=== PATIENT | female | born 1955 | race Caucasian/White ===

== ENCOUNTER → 2024-05-23 12:49 | Outpatient (REF) | payer MEDICARE, SELFPAY | LOC: WDC 12:49 | PROVIDERS: ATTENDING PHYSICIAN Physician Assistant | DX: Z12.31 Encounter for screening mammogram for malignant neoplasm of breast (principal) | CPT/HCPCS: 77063; 77067 ==

== ENCOUNTER → 2024-05-23 14:47 | Outpatient (REF) | payer MEDICARE, SELFPAY | LOC: PAVMRI 14:47 | PROVIDERS: ATTENDING PHYSICIAN Physical Medicine & Rehabilitation; FAMILY PHYSICIAN Physician Assistant | DX: M54.16 Radiculopathy, lumbar region (principal) | CPT/HCPCS: 72148 ==

== ENCOUNTER → 2024-08-28 12:12 | Outpatient (REF) | payer MEDICARE, SELFPAY | LOC: PAVMRI 12:12 | PROVIDERS: ATTENDING PHYSICIAN Physical Medicine & Rehabilitation; FAMILY PHYSICIAN Internal Medicine | DX: S76.311A Strain of muscle, fascia and tendon of the posterior muscle group at thigh level, right thigh, initial encounter (principal) | CPT/HCPCS: 73721 ==

== ENCOUNTER 2024-11-22 19:22 | Observation (INO) | payer MEDICARE, SELFPAY ==
[2024-11-22] VITALS (9 sets, daily range): BP systolic 137–184; BP diastolic 83–111; BMI 23.6
[2024-11-22 14:47] LABS: Hematocrit 38.0 % (37.0-47.0); Hemoglobin 13.1 g/dL (12.0-16.0); Mean Corp Hgb Conc. 34.5 g/dL (33.0-37.0); Mean Corpuscular Volume 89.4 fL (81.0-99.0); Nucleated Red Blood Cells % 0 %; Platelet Count 198 10^3/uL (130-400); Red Cell Dist. Width 12.7 % (11.5-14.5)
[2024-11-22 15:02] LABS: ALT (SGPT) 22 U/L (0-35); AST (SGOT) 29 U/L (14-36); Albumin 4.6 g/dl (3.5-5.0); Alkaline Phosphatase 95 U/L (38-126); Blood Urea Nitrogen 23 mg/dl (7-17); Calcium 9.4 mg/dl (8.4-10.2); Carbon Dioxide 29 mmol/L (22-30); Chloride 107 mmol/L (98-107); Glucose 95 mg/dl (70-99); Potassium 3.9 mmol/L (3.5-5.1); Sodium 140 mmol/L (135-145); Total Protein 6.8 g/dl (6.3-8.2); eGFR > 60.00
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
--- NOTE | 2024-11-22 19:06 | HPS.HSE ---
Family Physician
-
Family Physician: Korey Sanchez MD
Chief Complaint
-
Amnesia
History of Present Illness
Patient is a 69 y/o female past medical history of chronic back pain who presents with an episode of amnesia. Patient reports this morning she played tennis outdoors for about two hours, and then went to the gym. She personally does not remember
anything that occurred while at the gym, and the next thing she recalls is arriving in the emergency department. Apparently while at the gym patient was not acting herself. Patient was unable to locate her daughter while in the gym. Symptoms
lasted for about an hour and half. She is complaining of a mild headache but state she has not had anything to eat today. Patient denies any prior similar episode.
Medical History
Past Medical History
Past Medical History: Reports Other
Additional Past Medical History:
Chronic Back Pain
Past Surgical History: Reports Other
Additional Past Surgical History:
Anterior and Posterior Lumbar Fusion
ACL Repair
Trigger Finger Release
Social History
Tobacco: Non-smoker
Alcohol: Occasional
Family History
Family History: Not pertinent
Allergies / Home Medications
Allergies reflects when Allergies were last updated in [employer].
Home Medications with original date entered in [employer]
Allergy/Medication List:
Allergies
Allergy/AdvReac Type Severity Reaction Status Date / Time
No Known Allergies Allergy Verified 11/13/20 14:40
Home Medications
Lactobac no.2-Bifidobac no.1-S. thermo 112.5 billion cell capsule (Visbiome) 1 cap PO DAILY 11/22/24
cyanocobalamin (vitamin B-12) 2,500 mcg sublingual tablet 2,500 mcg sublingual DAILY 11/22/24
ferrous sulfate 325 mg (65 mg iron) tablet 325 mg PO DAILY 11/22/24
naproxen sodium 220 mg tablet 220 mg PO HS 11/22/24
polyethylene glycol 400 0.25 % eye drops (Blink Tears) 1 drp ophthalmic (eye) DAILYPRN PRN dry eyes 11/22/24
Review of Systems
-
A 12 point ROS was completed and negative except as noted: Yes
Constitutional: Denies Fever or Chills
Respiratory: Denies Cough or Trouble Breathing
Cardiac: Denies Chest Pain or Palpitations
Physical Exam
Vital Signs
Vital Signs
Temp Pulse Resp BP Pulse Ox
98.2 F 69 18 154/103 98
11/22/24 14:17 11/22/24 17:30 11/22/24 17:30 11/22/24 17:00 11/22/24 17:00
Physical Exam
General: Well Developed, Well Nourished and No Apparent Distress
HEENT: NormoCephalic, Anicteric, Moist mucous membranes and Atraumatic
Respiratory: Clear and Non Labored Respirations; No Wheezes, Rales or Rhonchi
Cardiac: S1/S2 and Regular Rhythm; No Murmur
GI: Soft, Non Tender, Non Distended and Normal Bowel Sounds
Rectal: Deferred by Provider
Musculoskeletal: No Clubbing, No Cyanosis and No Edema
Skin: Warm and Dry; No Rash
Neuro: Awake, Alert, Oriented and Nonfocal/grossly intact
Psych: Calm
Laboratory Results
-
11/22/24 14:26
11/22/24 14:26
Laboratory Results
Total Bilirubin 0.8 mg/dl (0.2-1.3) 11/22/24 14:26
AST 29 U/L (14-36) 11/22/24 14:26
ALT 22 U/L (0-35) 11/22/24 14:26
Alkaline Phosphatase 95 U/L (38-126) 11/22/24 14:26
Data Reviewed
-
CT Scan: Report Reviewed by me
Lab Data: Labs Reviewed by me
Impression/Plan
-
Transient Global Amnesia
-Appreciate Neurology consult
-Check Brain MRI
DVT proph: SCDs
Code Status: Full Code
--- NOTE | 2024-11-22 23:24 | TRANSFER ---
Received pt to room 434-1 from the ED. Pt walked with no assistance from stretcher to bed. AAOx3. VSS. Oriented to room, call valle within reach.
[2024-11-23 07:13] VITALS: BP 136/81
--- NOTE | 2024-11-23 11:26 | W.DCSUMMARY ---
Discharge Summary
Discharge Data
Date of Admission: 11/22/24
Date of Discharge: 11/23/24
-
Pending Results: No
Hospital Course
Primary diagnosis:
Possible transient global amnesia
Hospital course:
69-year-old healthy female presented with amnestic episode.
Patient yesterday morning played tennis outdoors for 2 hours as well as piano with her daughter without any issues. She went to the gym with her daughter between 12:30 PM and 1:30 PM yesterday afternoon. While she was in the gym she phoned her
daughter and said something was more apparent she was feeling fuzzy. Did not recall her close her daughter's birthday and did not remember going into the gym with her. This lasted for 1 to 2 hours. Patient did not recall this episode.
No trauma. No prior history of neurological disease. No prior history of seizure. No prior history of stroke or TIA. No risk factors for stroke.
She was nonfocal neurologically. CT of the head was negative for any acute findings. She had an MRI of the brain as well which did not show any acute intracranial abnormalities.
Lab work was fine and as well as EKG. No new events on the monitor.
Clinical suspicion was for TGA. Was reviewed by neurology who thinks it is probably TGA and she was discharged home today.
Today patient without any symptoms. Denies any headache. No vision disturbances or speech impairment. No tingling numbness in the hands or legs. No limb weakness.
Afebrile, pulse 70, blood pressure 136/81. + S1 plus S2 heard sinus rhythm. Nonfocal neurologically. Lab work from admission within the normal limits.
Medically stable for discharge home today.
Consultants on board:
Neurology-Conner Feliz
Portions of this chart may have been created with voice recognition software. Occasional wrong word or 'sound alike' substitutions may have occurred due to the inherent limitations of voice recognition software.
Discharge Plan
-
Patient Disposition: Home (Routine Discharge)
Discharge Diagnosis/Procedures: Possible transient global amnesia
Diet: Regular
Activity: As tolerated
Driving Restrictions: As prior to admission
Bathing Restrictions: None
Referrals:
Korey Sanchez MD [Family Provider, Internal Medicine]
Prescriptions:
Continued
cyanocobalamin (vitamin B-12) 2,500 mcg Tablet, Sublingual
2,500 mcg SUBLINGUAL DAILY
ferrous sulfate 325 mg (65 mg iron) Tablet
325 mg PO DAILY
naproxen sodium 220 mg Tablet
220 mg PO HS
Visbiome 112.5 billion cell Capsule
1 cap PO DAILY
Blink Tears 0.25 % Drops
1 drp OPHTHALMIC (EYE) DAILYPRN PRN (Reason: dry eyes)
Discharge Orders:
Discharge Patient (As Directed); Ordered 11/23/24
Ordered By: Barrie Bernabe
Discharge Date and Time
Print Language: SLOVAK
[2024-11-23 11:37] VITALS: BP 128/76
== END 2024-11-23 13:12 | disposition home or self-care (01) ==
LOC: 4 WEST ACU 19:22
PROVIDERS: Emergency Medicine; ADMITTING PHYSICIAN Hospitalist; ATTENDING PHYSICIAN Internal Medicine; CONSULT PHYSICIAN Psychiatry & Neurology Clinical Neurophysiology; EMERGENCY PHYSICIAN Emergency Medicine; FAMILY PHYSICIAN Internal Medicine
DX: G45.4 Transient global amnesia (principal); G89.29 Other chronic pain
CPT/HCPCS: 70450; 70551; 80053; 84443; 85025; 93005; 99285; G0378